=== PATIENT | male | born 1970 | race Caucasian/White ===

== ENCOUNTER 2018-07-31 07:45 | Emergency (ER) | payer SELFPAY ==
[~2018-07-31] VITALS: Ht 167.6 cm; Wt 68.0 kg
[2018-07-31 07:55] VITALS: BP 136/75
--- NOTE | 2018-07-31 08:01 | NUR ---
ED Nurse Note: Patient brought in to ER by Ann Merino, [id number], for medical clearance. pt c/o aching pain 1/10 on Lt thumb area hematoma, 0.2cmx0.2cm from handcuff. no open wound, bleeding, or s/s of infection noted at this moment. pt aao x4 and ambulatory. skin clean and intact. pt calm and cooperative. waiting to be seen by doctor.
--- NOTE | 2018-07-31 08:20 | NUR ---
ER DISCHARGE NOTE: Patient is cleared to be discharged per ERMD, pt is aox4, accompanied by LURDES Juarez, [id number], on room air, with stable vital signs. pt was given dc instructions and medical clearance for intermediate, pt was able to verbalize understanding, pt id band removed. pt is able to ambulate with steady gait with handcuff on. pt took all belongings.
--- NOTE | 2018-07-31 08:24 | Emergency Room Report ---
History of Present Illness General Chief Complaint: Medical Clearance Source: Patient Present Illness HPI Patient presents with complaints of abrasion to the left wrist Patient was brought in by [facility] for medical clearance Patient reports that he feels fine and there is a small blister Denies any chest pain Denies any pain to the fingers denies any other trauma Allergies: Coded Allergies: No Known Allergies (Unverified , 07/31/18) Patient History Past Medical History: see triage record Pertinent Family History: none Reviewed Nursing Documentation: PMH: Agreed; PSxH: Agreed Nursing Documentation-PMH Past Medical History: No History, Except For Hx 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 Limited exam Neurologic: alert, oriented x3, responsive Skin: other - As above Lymphatic: no adenopathy Medical Decision Making Diagnostic Impression: Primary Impression: medical clearance Additional Impression: abrasion ER Course Patient is a fairly limited examination At this time reports that he is well Evaluation of the wrist does not reveal any lacerations And patient stable for further booking Last Vital Signs Date Time Temp Pulse Resp B/P (MAP) Pulse Ox O2 Delivery O2 Flow Rate FiO2 07/31/18 07:55 97.7 95 18 136/75 98 Room Air Status: unchanged Disposition: D/C TO LAW ENFORCEMENT IN [facility] Condition: Stable Departure Forms: Skilled Nursing Clearance Patient Instructions: Abrasion, [id number] Additional Instructions: Follow-up mita Gutierrez as needed Nikolay Carrasco DO July 31, 2018 08:24
== END 2018-07-31 08:20 ==
LOC: EMR 08:15
DX: S60.812A Abrasion of left wrist, initial encounter (principal); X58.XXXA Exposure to other specified factors, initial encounter; Y92.9 Unspecified place or not applicable; B20 Human immunodeficiency virus [HIV] disease
CPT/HCPCS: 99282